=== PATIENT | female | born 1975 | race American Indian/Alaskan Native ===

== ENCOUNTER 2016-10-28 08:04 | Observation (INO) | payer BC, OTHER ==
[2016-10-24 11:10] VITALS: BMI 39.1
[2016-10-28] MEDS ORDERED: Lactated Ringer's 1,000 ML IV ONE ×2 (09:25→11:50)
[2016-10-28] MEDS ORDERED: Propofol 10 mg/ml Inj (20 ML) ONE ×2 (10:59→11:19)
[2016-10-28] MEDS ORDERED: ePHEDrine 50 mg/ml Inj ONE (11:01)
[2016-10-28] MEDS ORDERED: Midazolam 2 MG/2 ML VIAL ONE (11:02)
[2016-10-28] MEDS ORDERED: Lidocaine 4% (Laryng-O-Jet) Kit MM ONE (11:02)
[2016-10-28] MEDS ORDERED: Succinylcholine 200 mg/10 ml Inj IV ONE (11:02)
[2016-10-28] MEDS ORDERED: Rocuronium 10 mg/ml (5 ml) ONE ×2 (11:07→13:21)
[2016-10-28] MEDS ORDERED: Bupivacaine 0.5% Inj(30mL) ONE (11:16)
[2016-10-28] MEDS ORDERED: Dexamethasone 4 mg/1 ml ONE (12:13)
[2016-10-28] MEDS ORDERED: Esmolol 100 mg/10ml Inj IV ONE ×2 (12:28→12:29)
[2016-10-28] MEDS ORDERED: Neostigmine Methylsulfate 3mg/3ml Syringe IV ONE (13:15)
[2016-10-28] MEDS ORDERED: HYDROmorphone 0.5 mg/0.5 ml ISec ONE (14:33)
[2016-10-28] MEDS ORDERED: Lactated Ringer's 1,000 ML IV SCH ×2 (14:34→14:37)
[2016-10-28] MEDS ORDERED: Oxycodone/Acetaminophen 5/325 mg Tab PO PRN (14:37)
[2016-10-28] MEDS: HYDROmorphone 0.5 mg/0.5 ml ISec IVP PRN ×3 (14:45→15:30)
[2016-10-28] MEDS ORDERED: DiphenhydrAMINE 50 mg/ml Inj ONE (15:07)
[2016-10-28] MEDS ORDERED: DiphenhydrAMINE 50 mg/ml Inj IVP ONE (15:15)
--- NOTE | 2016-10-28 15:18 | OP ---
PROCEDURE DATE: 10/28/2016 PREOPERATIVE DIAGNOSES: Symptomatic fibroid uterus, menorrhagia, pelvic pain. POSTOPERATIVE DIAGNOSES: Symptomatic fibroid uterus, menorrhagia, pelvic pain with intraabdominal adhesions. The patient had a previous history of section x 3 and an umbilical hernia repair. OPERATION PERFORMED: Robotic hysterectomy, lysis of adhesions, cystoscopy. SURGEON: Kathy Horowitz MD ORTHOTIC AND PROSTHETIC TECHNICIAN: Dr. Rohit Sauceda. ANESTHESIA: Dr. Carrera. ESTIMATED BLOOD LOSS: [address] Sauceda was the tax assistant in the procedure. He was instrumental in the care of the patient. He helped create exposure, retract and obtain hemostasis. The procedure would not have been possible without his assistance. Shields catheter put out approximately 400 mL of clear urine. The patient received 1700 mL of D5 LR intraoperatively. OPERATIVE FINDINGS: A fibroid uterus, normal ovaries, tubes per been previously ligated. There was extensive abdominal adhesions, extensive bladder adhesions. The bladder dome was intact, bilateral efflux of clear urine through the urethral orifices. PROCEDURE: After informed consent was obtained, the patient was taken to the operating room where she was given general anesthesia. Timeout was performed. The patient was then prepped and draped in the usual sterile fashion. Dolphin stirrups were used. Attention was then turned to the vagina where a weighted speculum was inserted in the vagina. The cervix was visualized and grasped with a single-tooth tenaculum. The cervix was then gently dilated. A HUMI uterine manipulator was inserted into the uterine cavity as a means to manipulate the uterus. Attention was then turned to the urethra where a Shields catheter was inserted into the bladder to monitor the patient's urinary output. Attention was then turned to the abdomen. Approximately 10 cm superior to the umbilicus, Marcaine was infused and an 8 mm incision was made. The abdomen was tented upward and a Veress needle was inserted. Placement was confirmed with a fluid-filled syringe. The abdomen was then insufflated to 20 mmHg. An 8 mm robotic port was then introduced into the abdominal cavity and placement was confirmed with a laparoscope. The abdomen was surveyed with the findings noted above. There were extensive umbilical adhesions, extensive bladder adhesions and omental adhesions to the fundus of the uterus. Attention was then turned approximately 20 cm right and lateral to the umbilicus. Marcaine was infused and an 8 mm incision was made and a robotic port was introduced under direct visualization. Attention was then turned to approximately 10 cm right and lateral to the umbilicus, which in similar fashion Marcaine was infused, an 8 mm incision was made and a robotic port was introduced under direct visualization. Attention was then turned to the left side of the abdomen , approximately 20 cm left and lateral to the umbilicus, Marcaine was infused and an 8 mm incision was made and a robotic port was inserted under direct visualization. An tax assistant port was introduced approximately 10 cm left and lateral to the umbilicus, Marcaine was infused, a 5 mm incision was made and a 5 mm trocar was introduced under direct visualization. The instruments used for the surgery were PK dissector, ely suture cut and a ProGrasp and a scissor. The patient was placed in steep Trendelenburg and the table was lowered and the robot was docked without complication. The instruments were inserted into the abdomen. Attention was directed immediately to the umbilical adhesions. They were gently grasped with the PK dissector and lysed using the scissor, using cautery when necessary. We proceeded down towards the uterus. At the fundus there were both omental and bowel adhesions to the fundus of the uterus. In similar fashion, we grasped the adhesions with the PK dissector and the adhesions were meticulously dissected away from the uterus using both sharp and blunt dissection with the scissors. The uterus was also noted to be adherent to the anterior abdominal wall with both filmy and dense adhesions. Gentle traction was placed downward on the uterus and the uterus was freed from the anterior abdominal wall using both sharp and blunt dissection. Attention was then turned to the left round ligament. It was serially coagulated, then transected with the scissors. The anterior peritoneum was then undermined with the PK dissector and cut with the scissor. Incision was brought down to the level of the VCare cup anteriorly. The posterior aspect of the peritoneum was then undermined. The VCare cup was identified posteriorly. The peritoneum was undermined with the PK dissector and cut with the scissors. The uterosacral ligament was then coagulated. The uterine artery was then skeletonized and serially coagulated with the PK dissector, then cut with scissors. The VCare cup was then identified anteriorly, laterally and posteriorly. Attention was then turned to the right round ligament. It was serially coagulated and transected with a scissors. The peritoneum was undermined and cut with the scissors down to the level of the VCare cup anteriorly. The uterine artery was then skeletonized with the PK dissector and serially coagulated and transected with a scissors. The cup was then identified anteriorly, posteriorly and laterally. We then proceeded to make the colpotomy incision with the hot kishor. The uterus and cervix were amputated from the vagina using the scissors. Prior to completing amputation a fibroid was enucleated from the uterus due to the large size of the specimen. The uterus was then delivered vaginally. The fibroid was extracted separately. A 12 inch 2-0 barbed suture was then introduced into the abdomen and the vaginal cuff was closed in a running fashion. The abdomen was then irrigated. The irrigant was removed with a suction device. Hemostasis was noted. All instruments were then removed from the abdomen. The robot was then docked successfully. Attention was then turned to the urethra. Shields catheter was removed. Cystoscopy was performed due to the patient's dense bladder adhesions from her 3 previous sections. The bladder was noted to be intact. There was bilateral ureteral efflux of urine. All instruments were then removed from the vagina. The umbilical incision was closed with 0 Vicryl. The remaining ports were closed with Dermabond. All sponge, lap, needle, and instrument counts were correct x 2 and the patient was taken to recovery room in awake and stable condition. Kathy Horowitz MD cc: [phone] TT: 10/28/2016 15:17:48 walter NUNEZ
[2016-10-28] MEDS ORDERED: Labetalol 5mg/ml (4ml) IVP PRN (15:57)
[2016-10-28] MEDS ORDERED: Labetalol 5mg/ml (4ml) IVP ONE ×2 (16:20→16:40)
[2016-10-28] MEDS ORDERED: cefOXitin Sodium 1 GM in Sodium Chloride 0.9% 100 ML IVPB SCH (17:00)
[2016-10-29] MEDS ORDERED: cefOXitin Sodium 1 GM in Dextrose 5% In Water 50 ML IVPB SCH ×2 (01:00→06:00)
[2016-10-29 08:23] LABS: MEAN CELL VOLUME 89.6 fl (81.0-99.0); MEAN CORPUSCULAR HEMOGLOBIN 31.3 pg (27.0-31.0); MEAN CORPUSCULAR HGB CONC 34.9 g/dL (33.0-37.0); RED CELL DISTRIBUTION WIDTH 13.9 % (11.5-14.5); WHITE BLOOD COUNT 10.3 K/uL (4.8-10.8)
[2016-10-29 08:38] VITALS: RESP 18
--- NOTE | 2016-10-29 12:22 | CP.PCM.PN ---
Subjective - Date & Time of Evaluation Date of Evaluation: 10/29/16 Time of Evaluation: 12:19 - Subjective Subjective: Patient is a 41 yo s/p RAT POD #1. Patient recovering well, denies CP, no SOB , no N/V, tolerating PO diet, abdominal pain well controlled, no vaginal bleeding, voiding/ambulating well, +flatus Objective - Vital Signs/Intake and Output Vital Signs (last 24 hours): Temp Pulse Resp BP Pulse Ox 98.4 F 72 18 163/84 H 98 10/29/16 08:38 10/29/16 09:23 10/29/16 08:38 10/29/16 09:23 10/29/16 08:38 Intake and Output: 10/29/16 10/29/16 06:59 18:59 Intake Total 1620 Output Total 1500 Balance 120 - Medications Medications: Current Medications Lactated Ringer's (Lactated Ringer's) 1,000 mls @ 125 mls/hr IV .Q8H COUNT INCLUDES THE [facility] Last Admin: 10/29/16 02:47 Dose: 125 mls/hr Ibuprofen (Motrin Oral Susp) 600 mg PO Q6 PRN PRN Reason: Pain, moderate (4-7) Labetalol HCl (Trandate) 200 mg PO BID COUNT INCLUDES THE [facility] Last Admin: 10/29/16 09:23 Dose: 200 mg Ondansetron HCl (Zofran Inj) 4 mg IVP ONCE PRN PRN Reason: Nausea/Vomiting Oxycodone/Acetaminophen (Percocet 5/325 Mg Tab) 1 tab PO Q4 PRN PRN Reason: Pain, moderate (4-7) Stop: 10/31/16 14:38 Last Admin: 10/29/16 12:09 Dose: 1 tab - Labs Labs: 10/29/16 06:00 - Respiratory Exam Respiratory Exam: NORMAL BREATHING PATTERN - Cardiovascular Exam Cardiovascular Exam: REGULAR RHYTHM - GI/Abdominal Exam GI & Abdominal Exam: Soft, Normal Bowel Sounds Additional comments: non-distended, no rebound, incisions covered by bandages dry - Rectal Exam Rectal Exam: NORMAL INSPECTION - Extremities Exam Extremities Exam: Normal Inspection Assessment and Plan - Assessment and Plan (Free Text) Plan: A/P 39 yo s/p [facility] POD #1 1. Patient recovering well and ready for discharge. 2. Discharge instructions reviewed
[2016-10-29 12:37] VITALS: BP 146/81; PULSE 77; TEMP 98.8; O2SAT 97
== END 2016-10-29 15:00 | disposition home or self-care (01) ==
LOC: H.OPSURG 08:04 → H.PEDS 14:37
PROVIDERS: ADMIT Obstetrics & Gynecology Gynecology; ATTEND Obstetrics & Gynecology Gynecology
DX: D25.9 Leiomyoma of uterus, unspecified (principal); N92.0 Excessive and frequent menstruation with regular cycle
CPT/HCPCS: 36415; 49329; 52000; 58550; 85027; 88305; 96365; 96366; G0378; J0330; J0690; J0694; J1100; J1170; J1200; J1885; J2001; J2250; J2405; J2704; J2710; J3010; J7120; S2900